=== PATIENT | male | born 1945 | race Caucasian/White ===

== ENCOUNTER 2019-03-07 08:56 | Inpatient (IN) | payer MEDICARE ==
[~2019-03-07] VITALS: Ht 185.4 cm; Wt 109.6 kg
[2019-03-07 10:28] LABS: Source, Urine Clean Catch
[2019-03-07 10:32] LABS: Bilirubin, Urine Neg (Neg); Blood, Urine Neg (Neg); Glucose Qualitative, Urine 4+ (Neg); Ketones, Urine 2+ (Neg); Leukocyte Esterase, Urine Neg (Neg); Nitrite, Urine Neg (Neg); Protein, Urine Neg (Neg); Specific Gravity, Urine 1.025 (1.003-1.022); Urobilinogen, Urine NORM (Normal)
[2019-03-07 10:33] LABS: BASOPHILS ABSOLUTE AUTO 0.01 K/mm3 (0.00-0.23); BASOPHILS PERCENT AUTO 0 % (0-2); EOSINOPHILS ABSOLUTE AUTO 0.02 K/mm3 (0.00-0.68); EOSINOPHILS PERCENT AUTO 0 % (0-6); Hematocrit 19.4 % (37.0-53.0); IMMATURE GRAN ABSOLUTE AUTO 0.04 K/mm3 (0.00-0.10); IMMATURE GRAN PERCENT AUTO 1 % (0-1); LYMPHOCYTES ABSOLUTE AUTO 0.72 K/mm3 (0.84-5.20); LYMPHOCYTES PERCENT AUTO 10 % (21-46); MONOCYTES PERCENT AUTO 7 % (4-13); Mean Corpuscular HGB Conc 29.4 g/dL (31.5-36.5); Mean Corpuscular Volume 89 fL (80-100); NEUTROPHILS ABSOLUTE AUTO 5.69 K/mm3 (1.96-9.15); NEUTROPHILS PERCENT AUTO 82 % (41-73); NRBC ABSOLUTE 0.03 K/mm3 (0.00-0.02); NRBC Auto 0.4 /100 WBC (0.0-0.2); Platelet Count 337 K/mm3 (150-400); RDW Standard Deviation 56.9 fL (35.1-46.3); Red Blood Cell Count 2.19 M/mm3 (4.30-5.90); White Blood Cell Count 6.98 K/mm3 (4.00-11.30)
[2019-03-07 10:37] LABS: Hemoglobin 5.7 g/dL (13.5-17.5)
[2019-03-07 10:43] LABS: Appearance, Urine Clear (Clear); Color, Urine Yellow (P-Yellow)
[2019-03-07] MEDS ORDERED: LOVA40 PO (10:50)
[2019-03-07] MEDS ORDERED: METO25ER PO (10:50)
[2019-03-07] MEDS ORDERED: LOSA25 PO (10:50)
[2019-03-07 10:57] LABS: Alanine Aminotransfer (ALT/SGP 18 U/L (12-78); Albumin, Blood 3.3 g/dL (3.4-5.0); Alk Phos 62 U/L (50-136); Anion Gap 10 mmol/L (6-16); Aspartate Aminotrans (AST/SGOT 10 U/L (12-37); Bilirubin, Total 0.5 mg/dL (0.1-1.0); Blood Urea Nitrogen 34 mg/dL (8-24); Bun/Creatinine Ratio 38.8 (12.0-20.0); CO2, Blood 20 mmol/L (21-32); Calcium, Blood 8.4 mg/dL (8.5-10.1); Chloride, Blood 107 mmol/L (98-108); Creatinine, Blood 0.88 mg/dL (0.60-1.20); Globulin, Blood 3.2 g/dL (2.2-4.0); Glomerular Filtration Rate >60 (60-); Glucose, Blood 230 mg/dL (70-99); Potassium, Blood 3.9 mmol/L (3.5-5.5); Sodium, Blood 137 mmol/L (136-145); Total Protein, Blood 6.5 g/dL (6.4-8.2)
[2019-03-07 11:54] LABS: International Normalized Ratio 1.17; Prothrombin Time Results 12.2 Sec (9.7-11.5)
[2019-03-07] MEDS ORDERED: Co Q-10300 MG PO (13:47)
[2019-03-07] MEDS ORDERED: CHOL10002 PO (13:48)
[2019-03-07] MEDS ORDERED: CENTRUM SILVER1 EAC4 PO (13:49)
[2019-03-07] MEDS ORDERED: OMEG1CAP30 PO (13:49)
[2019-03-07] MEDS ORDERED: Aspirin EC81 MG PO (13:50)
[2019-03-07] MEDS ORDERED: Glucosamine Ch1 EAC3 PO (13:50)
--- NOTE | 2019-03-07 14:45 | NUR ---
ASSUMED CARE PT. ALERT AND ORIENTED. ABLE TO TRANSFER SELF TO ICU BED. PT. HAS FIRST UNIT OF BLOOD INFUSING UPON ARRIVAL. PT. DENIES PAIN, INCLUDING NO PAIN WITH ABD. PALPATION. PT. CURRENTLY ON RA. LS CLEAR T/O. PT. VSS UPON ARRIVAL, HR IN THE LOW 100S, BP STABLE. DR. OWENS PAGED UPON PT. ARRIVAL. PT. HAS PROTONIX GTT INFUSING AT THIS TIME. URINAL PLACED AT BEDSIDE. PT. REPORTS DARK TARRY STOOL YESTERDAY AM BUT REPORTS NO ADDITIONL BMS SINCE. PT DENIES ANY N/V. CALL LIGHT IN REACH, PT. ORIENTED TO ROOM.
--- NOTE | 2019-03-07 16:57 | NUR ---
DR. OWENS IN TO SEE PT. PLANS FOR UPPER ENDOSCOPY TOMORROW AFTERNOON. PER. DR. ROMAN KELLEY FOR PT. TO HAVE CLEAR LIQUID DIET AND NPO AFTER BREAKFAST TOMORROW AM.
--- NOTE | 2019-03-07 18:28 | NUR ---
SHIFT SUMMARY PT. REMAINS ALERT AND ORIENTED. VSS. 2 UNITS OF PRBCS INFUSED. NO BMS NO EMESIS. PT. CONTINUES TO DENY PAIN. PLANS TO SCOPE PT IN THE AFTERNOON TOMORROW. PT TO BE NPO AFTER BREAKFAST WITH CLEAR LIQUID DIET. REPORT TO ONCOMING RN.
[2019-03-07 18:55] LABS: Hematocrit 21.8 % (37.0-53.0); Hemoglobin 6.8 g/dL (13.5-17.5)
--- NOTE | 2019-03-07 23:25 | NUR ---
ASSUMING CARE RECEIVED PT REPORT FROM AMANDEEP GONG. PT IS ALERT AND ORIENTED AT THE TIME CARE ASSUMED. PT IS ADMITTED DUE TO ANEMIA AND GIB. PT IS ON ROOM AIR WITH SPO2 IN THE HIGH 90'S TO 100 RANGE. PT LUNG SOUNDS ARE CLEAR. PT HR IS IN THE 80-100 RANGE. PT HR APPEARS TO BE IN A-FIB AT TIMES. PT BP IS STABLE AT THIS TIME. PER REPORT PT HAS RECEIVED 2 UNITS OF BLOOD. AT THE TIME CARE ASSUMED PT HGB WAS 6.8. MARIA LUISA LATHAM CALLED AND INFORMED OF PTS HGB AFTER 2 UNITS PRBC'S. ORDER RECEIVED PT TRANSFUSE 1 UNIT PRBC AND REDRAW H/H AFTER INFUSION COMPLETE. ORDER ENTERED RECEIVED. 1 UNIT PRBC TRANSFUSED. PT IS ABLE TO VOID USING URINAL WITHOUT DIFFICULTY. PT IS RECEIVING NS AT 100ML/HR AND PROTONIX AT 10ML/HR. NS PLACED ON HOLD THROUGH BLOOD TRANSFUSION. ASSUMED CARE OF PT AT THE TIME OF SHIFT REPORT. WILL CONTINUE TO MONITOR PT.
[2019-03-07 23:52] LABS: Hematocrit 23.6 % (37.0-53.0); Hemoglobin 7.5 g/dL (13.5-17.5)
--- NOTE | 2019-03-08 02:27 | NUR ---
REASSESSMENT PT VITALS REMAIN STABLE AT THIS ITME. PT HAS NOT HAD A BM OF YET THROUGH THE NIGHT. PT CONTINUES TO RECEIVE NS AT 100ML/HR AND PROTONIX AT 10ML/HR. WILL CONTINUE TO MONITOR PT.
[2019-03-08 03:00] LABS: BASOPHILS ABSOLUTE AUTO 0.02 K/mm3 (0.00-0.23); BASOPHILS PERCENT AUTO 0 % (0-2); EOSINOPHILS ABSOLUTE AUTO 0.15 K/mm3 (0.00-0.68); EOSINOPHILS PERCENT AUTO 2 % (0-6); Hematocrit 23.4 % (37.0-53.0); Hemoglobin 7.3 g/dL (13.5-17.5); IMMATURE GRAN ABSOLUTE AUTO 0.02 K/mm3 (0.00-0.10); IMMATURE GRAN PERCENT AUTO 0 % (0-1); LYMPHOCYTES ABSOLUTE AUTO 1.14 K/mm3 (0.84-5.20); LYMPHOCYTES PERCENT AUTO 17 % (21-46); MONOCYTES ABSOLUTE AUTO 0.73 K/mm3 (0.16-1.47); MONOCYTES PERCENT AUTO 11 % (4-13); Mean Corpuscular HGB 27.2 pg (26.0-34.0); Mean Corpuscular HGB Conc 31.2 g/dL (31.5-36.5); Mean Corpuscular Volume 87 fL (80-100); Mean Platelet Volume 9.6 fL (9.1-12.4); NEUTROPHILS ABSOLUTE AUTO 4.83 K/mm3 (1.96-9.15); NEUTROPHILS PERCENT AUTO 70 % (41-73); Platelet Count 235 K/mm3 (150-400); RDW Coefficient Variation 17.5 % (11.7-14.2); RDW Standard Deviation 55.3 fL (35.1-46.3); Red Blood Cell Count 2.68 M/mm3 (4.30-5.90); White Blood Cell Count 6.89 K/mm3 (4.00-11.30)
[2019-03-08 03:19] LABS: Anion Gap 7 mmol/L (6-16); Blood Urea Nitrogen 24 mg/dL (8-24); Bun/Creatinine Ratio 26.6 (12.0-20.0); CO2, Blood 22 mmol/L (21-32); Calcium, Blood 7.8 mg/dL (8.5-10.1); Chloride, Blood 113 mmol/L (98-108); Glomerular Filtration Rate >60 (60-); Glucose, Blood 101 mg/dL (70-99); Potassium, Blood 4.1 mmol/L (3.5-5.5); Sodium, Blood 142 mmol/L (136-145)
--- NOTE | 2019-03-08 05:56 | NUR ---
SHIFT SUMMARY NOTE PT HAS REMAINED ALERT AND ORIENTED WHILE AWAKE. PT HAS SLEPT OFF AND ON THROUGHOUT THE NIGHT. PT HAS REMAINED ON ROOM AIR THROUGHOUT THE NIGHT WITHOUT ANY NOTED DESATURATIONS. PT VITALS HAVE REMAINED STABLE THROUGH THE NIGHT. PT CONTINUES TO RECEIVE NS AT 100ML/HR AND PROTONIX AT 10ML/HR. PT HAS BEEN ABLE TO USE URINAL THROUGHOUT THE NIGHT BY STANDING NEXT TO THE BED A STANDBY ASSIST WITHOUT DIFFICULTY. PT HAS NOT HAD A BM THROUGHOUT THE NIGHT. NO OBVIOUS SIGNS OF BLEEDING HAVE BEEN NOTED THROUGH THE NIGHT. WILL REPORT OFF TO ONCOMING DAY SHIFT NURSE.
--- NOTE | 2019-03-08 07:41 | NUR ---
ASSUMED CARE: REPORT RECEIVED FROM KARLA Bynum RN. ASSUMED CARE OF THIS PT AT APPROX 0700. ON ASSESSMENT, THE PT IS SITTING UP IN BED. HE DENIES NEEDS OR PAIN AT THIS TIME & IS TOLERATING PO INTAKE OF CLEAR LIQUIDS WELL. PT TO BE NPO AFTER BREAKFAST FOR POSSIBLE UPPER ENDO THIS AFTERNOON. WILL CONTINUE TO MONITOR & UPDATE NEEDED.
--- NOTE | 2019-03-08 10:00 | NUR ---
DR. GUZMAN: PROVIDER AT BEDSIDE TO SEE PT. NO NEW ORDERS AT THIS TIME. WILL RESULTS OF UPPER ENDO THIS AFTERNOON. WILL CONTINUE TO MONITOR & UPDATE NEEDED.
--- NOTE | 2019-03-08 13:02 | NUR ---
UPPER ENDOSCOPY: DR. OWENS & DAY SURGERY RNs IN ROOM TO PERFORM UPPER ENDO. PT VERBALIZES UNDERSTANDING OF THIS PROCEDURE. HE HAS BEEN NPO SINCE BREAKFAST. WILL CONTINUE TO MONITOR & UPDATE NEEDED.
--- NOTE | 2019-03-08 13:19 | NUR ---
03/08/19 1319 Renetta Diggs History, Chart, Medications and Allergies reviewed before start of procedure.Patient confirms NPO status and agrees with scheduled surgery.MONITOR INTACT WITH CONTINUOUS PULSE OXIMETRY AND INTERMITTENT BP.3-LEAD EKG REVIEWED WITH PHYSICIAN PRIOR TO START OF PROCEDURE. PATIENT DETERMINED TO BE ASA APPROPRIATE FOR PROPOFOL SEDATION PRIOR TO START OF PROCEDURE BY DR. FRANCIS O2 VIA N/C INTACT THROUGHOUT SEDATION/PROCEDURE.
--- NOTE | 2019-03-08 14:30 | NUR ---
DR. OWENS: UPPER ENDOSCOPY HAS BEEN COMPLETED, PROVIDER IS AT BEDSIDE DISCUSSING RESULTS W/ PT. THE PT IS TO REMAIN ON CLEAR LIQUIDS ONLY, NO REDS. DR. PAULINO HAS BEEN CONSULTED BY DR. OWENS & WILL BE ABLE TO SEE THE PT ON THURSDAY (03/10/19). ORDERS PLACED FOR CTA OF CHEST & ABD. SHANK PIECE TACKER WILL CALL THIS RN WHEN THE PT IS OKAY TO BE BROUGHT DOWN FOR IMAGING STUDY. DR. OWENS STS THAT THE BLEEDING HAS BEEN BEEN STOPPED AT THIS TIME BUT IS LIKELY TO REOCCUR. WILL CONTINUE TO MONITOR & UPDATE NEEDED.
--- NOTE | 2019-03-08 16:39 | NUR ---
Initial Spiritual Care visit: Amilcar was welcoming and talkative. We met late this AM, before his proceedure. He was not particularly worried at that time. He told me about his life, his careers, and his devotion to volunteering at a [email or web address]. He is a fascinating man. His is currently out of town, but will arrive tomorrow. He appears to have a strong marriage. He has christopher in God, and responded well to prayer and theraputic listening. We had an easy rapport. I will continue to see Amilcar as schedule permits.
--- NOTE | 2019-03-08 18:42 | NUR ---
SHIFT SUMMARY: NO ACUTE CHANGES THIS SHIFT. PT REMAINS A&O, PLEASANT & COOPERATIVE W/ CARE. PT STS EXPERIENCING MILD DIZZINESS W/ TRIP TO IMAGING & FREQUENT TXs FROM BED TO WC. THIS IS RESOLVED WHEN BACK TO BED & RESTING. LS REMAIN CLEAR T/O, PT ON RA W/ O2 SATS > 92%. AFIB ON MONITOR, HR 80-100s. BP INCREASED THIS AFTERNOON SINCE UPPER ENDO PERFORMED & PT INFORMED OF PROCEDURE FINDINGS. BT HYPERACTIVE x4, PT HAS HAD NO BM THIS SHIFT. PT TOLERATING PO INTAKE OF CLEAR LIQUIDS WELL, HE IS TO BE NPO AFTER [place] PRIOR TO DR. PAULINO CONSULT ON THURSDAY. VOIDS YELLOW URINE USING URINAL AT BEDSIDE W/O DIFFICULTY, PAD IN UNDERWEAR FOR OCCASIONAL DRIBBLING INCONTINENCE. PALLIATIVE CARE & SUPPORT HAVE BEEN OFFERED SINCE PROCEDURE FINDINGS TODAY. PT's WILL BE BACK IN TOWN TOMORROW & THE PT HAS BEEN IN COMMUNICATION W/ HER. WILL CONTINUE TO MONITOR & REPORT OFF TO ONCOMING RN.
--- NOTE | 2019-03-08 19:30 | NUR ---
ASSUMED CARE PT A&O X 4, SITTING UP IN BED, CURRENTLY DENIES COMPLAINTS. PER REPORT, SCOPE COMPLETED TODAY, PT HAS SOME QUESTIONS REGARDING PLANS FOR OVERNIGHT INCLUDING RECHECKING H&H IN AM AND MONITORING FOR BLEEDING. PT SOMEWHAT ANXIOUS AND REPORTS HE LIKES TO TALK ABOUT HIS LIFE AND VOLUNTEER ACTIVITIES A WAY OF DISTRACTING HIMSELF. PROTONIX AT 10ML/HR, NS 100ML/HR. PLAN TO ENCOURAGE CLEAR LIQUID PO INTAKE, PT HAS CONCERNS THAT "WHATEVER WAS PLACED INTO BLEEDING MASS WILL WEAR OFF." REASSURED THAT SMALL SIPS OF WATER OR APPLE JUICE SHOULD NOT CAUSE A PROBLEM BUT PT REMAINS SCEPTICAL. VSS, ECG SHOWS AFIB IN THE 70-90'S AND O2 SATS ON RA >95%.
[2019-03-09 03:35] LABS: BASOPHILS ABSOLUTE AUTO 0.02 K/mm3 (0.00-0.23); BASOPHILS PERCENT AUTO 0 % (0-2); EOSINOPHILS ABSOLUTE AUTO 0.24 K/mm3 (0.00-0.68); EOSINOPHILS PERCENT AUTO 3 % (0-6); Hematocrit 22.2 % (37.0-53.0); Hemoglobin 6.8 g/dL (13.5-17.5); IMMATURE GRAN ABSOLUTE AUTO 0.03 K/mm3 (0.00-0.10); IMMATURE GRAN PERCENT AUTO 0 % (0-1); LYMPHOCYTES ABSOLUTE AUTO 0.84 K/mm3 (0.84-5.20); LYMPHOCYTES PERCENT AUTO 11 % (21-46); MONOCYTES ABSOLUTE AUTO 0.96 K/mm3 (0.16-1.47); MONOCYTES PERCENT AUTO 13 % (4-13); Mean Corpuscular HGB 27.3 pg (26.0-34.0); Mean Corpuscular HGB Conc 30.6 g/dL (31.5-36.5); Mean Corpuscular Volume 89 fL (80-100); Mean Platelet Volume 9.2 fL (9.1-12.4); NEUTROPHILS ABSOLUTE AUTO 5.49 K/mm3 (1.96-9.15); NEUTROPHILS PERCENT AUTO 72 % (41-73); Platelet Count 197 K/mm3 (150-400); RDW Standard Deviation 57.1 fL (35.1-46.3); Red Blood Cell Count 2.49 M/mm3 (4.30-5.90); White Blood Cell Count 7.58 K/mm3 (4.00-11.30)
--- NOTE | 2019-03-09 06:13 | NUR ---
SHFIT SUMMARY PT REMAINS A&O, CONTINUES TO DENY COMPLAINTS OF PAIN OR NAUSEA. NO BM'S FOR SHIFT DESPITE ONE ATTEMPT AND HAS HAD NO OBVIOUS SIGNS OF BLEEDING FOR SHIFT. HGB DROPPED TO 6.8 THIS AM AND 1 UNIT PRBC'S INFUSING AND PROTONIX AT 10ML/HR. NS AT 100ML/HR ON STANDBY WHILE BLOOD INFUSING. VSS, BP DROPS WITH SLEEP BUT HAS ADEQUATE MAP. PT TOLERATING CLEAR LIQUIDS THIS SHIFT. PLAN FOR NPO AT MIDNIGHT TONIGHT FOR [facility] CONSULT ON THURSDAY.
--- NOTE | 2019-03-09 07:15 | NUR ---
START OF SHIFT NOTE: RECEIVED REPORT FROM ZAK GUERRA, RN, ASSUMED CARE, PATIENT IS AWAKE AND ALERT AND ORIENTED, HAS ONE UNIT OF PRBC'S INFUSING AT THIS TIME, LUNG SOUNDS CLEAR, PATIENT HAS CHRONIC A-FIB, RATE CONTROLLED BETWEEN 60'S AND 80'S, BT'S PRESENT IN ALL FOUR QUADRANTS, PATIENT VOIDS WITHOUT PROBLEM BUT NEEDS TO STAND AT SIDE OF BED, USES URINAL, CALLS FOR ASSISTANCE APPROPRIATELY, PEDAL PULSES PRESENT, PALPABLE, AND STRONG, SCD'S ORDERED AND WILL BE PLACED, CALL LIGHT IN REACH, WILL CONTINUE TO MONITOR.
[2019-03-09 12:26] LABS: BASOPHILS ABSOLUTE AUTO 0.02 K/mm3 (0.00-0.23); BASOPHILS PERCENT AUTO 0 % (0-2); EOSINOPHILS ABSOLUTE AUTO 0.08 K/mm3 (0.00-0.68); EOSINOPHILS PERCENT AUTO 1 % (0-6); Hematocrit 25.8 % (37.0-53.0); Hemoglobin 7.9 g/dL (13.5-17.5); IMMATURE GRAN ABSOLUTE AUTO 0.04 K/mm3 (0.00-0.10); IMMATURE GRAN PERCENT AUTO 1 % (0-1); LYMPHOCYTES ABSOLUTE AUTO 0.66 K/mm3 (0.84-5.20); LYMPHOCYTES PERCENT AUTO 9 % (21-46); MONOCYTES ABSOLUTE AUTO 0.95 K/mm3 (0.16-1.47); MONOCYTES PERCENT AUTO 13 % (4-13); Mean Corpuscular HGB 27.4 pg (26.0-34.0); Mean Corpuscular HGB Conc 30.6 g/dL (31.5-36.5); Mean Corpuscular Volume 90 fL (80-100); Mean Platelet Volume 9.2 fL (9.1-12.4); NEUTROPHILS ABSOLUTE AUTO 5.79 K/mm3 (1.96-9.15); NEUTROPHILS PERCENT AUTO 77 % (41-73); Platelet Count 209 K/mm3 (150-400); RDW Coefficient Variation 17.3 % (11.7-14.2); RDW Standard Deviation 55.4 fL (35.1-46.3); Red Blood Cell Count 2.88 M/mm3 (4.30-5.90); White Blood Cell Count 7.54 K/mm3 (4.00-11.30)
--- NOTE | 2019-03-09 17:38 | NUR ---
SHIFT SUMMARY NOTE: PATIENT CONTINUES TO BE AWAKE AND ALERT AND ORIENTED, DR. OWENS AT BEDSIDE AT THIS TIME, AND PATIENT IS TELLING STORIES, PATIENT CONTINUES TO BE ON PROTONIX DRIP, ON CLEAR LIQUID DIET, PATIENT URINATES WELL, STANDING AT SIDE OF BED WITH SBA, SCD'S IN PLACE, NPO AFTER MIDNIGHT FOR PENDING PROCEDURE BY DR. PAULINO IN AM, CALL LIGHT IN REACH, WILL CONTINUE TO MONITOR, FOR DETAILS SEE SHIFT ASSESSMENT DOCUMENTATION AND NURSES NOTES, WILL GIVE REPORT TO ONCOMING LAUNCH ENGINEER.
--- NOTE | 2019-03-09 19:30 | NUR ---
ASSUMED CARE PT REMAINS A&O, DENIES COMPLAINTS AND HAS QUESTIONS ABOUT PROCEDURE WITH DR PAULINO PLANNED FOR TOMORROW. PT EXPRESSES CONCERNS ABOUT NEEDING TO HAVE WORKMAN CATH PLACED D/T SUPINE POSITIONING. DISCUSSED CONDOM CATHETER OPTION, ADVISED PT WILL NOT BE ABLE TO COMPLETELY EMPTY BLADDER BECAUSE HE WILL NOT BE ABLE TO STAND, BUT PT IS CALMED THAT THERE IS ANOTHER OPTION. WILL PASS ON TO AM RN. PT AWARE OF NPO STATUS AFTER MIDNIGHT. PROTONIX AT 10ML/HR AND NS AT 100ML/HR. NO BM TODAY AND REPEAT H&H PLANNED FOR 1999.
[2019-03-09 20:15] LABS: BASOPHILS ABSOLUTE AUTO 0.04 K/mm3 (0.00-0.23); BASOPHILS PERCENT AUTO 1 % (0-2); EOSINOPHILS ABSOLUTE AUTO 0.13 K/mm3 (0.00-0.68); EOSINOPHILS PERCENT AUTO 2 % (0-6); Hematocrit 25.6 % (37.0-53.0); Hemoglobin 8.1 g/dL (13.5-17.5); IMMATURE GRAN ABSOLUTE AUTO 0.04 K/mm3 (0.00-0.10); IMMATURE GRAN PERCENT AUTO 1 % (0-1); LYMPHOCYTES ABSOLUTE AUTO 0.85 K/mm3 (0.84-5.20); LYMPHOCYTES PERCENT AUTO 10 % (21-46); MONOCYTES ABSOLUTE AUTO 1.27 K/mm3 (0.16-1.47); MONOCYTES PERCENT AUTO 15 % (4-13); Mean Corpuscular HGB 28.5 pg (26.0-34.0); Mean Corpuscular HGB Conc 31.6 g/dL (31.5-36.5); Mean Corpuscular Volume 90 fL (80-100); Mean Platelet Volume 9.8 fL (9.1-12.4); NEUTROPHILS ABSOLUTE AUTO 6.28 K/mm3 (1.96-9.15); NEUTROPHILS PERCENT AUTO 73 % (41-73); Platelet Count 220 K/mm3 (150-400); RDW Coefficient Variation 17.6 % (11.7-14.2); RDW Standard Deviation 55.2 fL (35.1-46.3); Red Blood Cell Count 2.84 M/mm3 (4.30-5.90); White Blood Cell Count 8.61 K/mm3 (4.00-11.30)
[2019-03-10 03:47] LABS: BASOPHILS ABSOLUTE AUTO 0.03 K/mm3 (0.00-0.23); BASOPHILS PERCENT AUTO 0 % (0-2); EOSINOPHILS ABSOLUTE AUTO 0.15 K/mm3 (0.00-0.68); EOSINOPHILS PERCENT AUTO 2 % (0-6); Hematocrit 25.3 % (37.0-53.0); IMMATURE GRAN ABSOLUTE AUTO 0.03 K/mm3 (0.00-0.10); IMMATURE GRAN PERCENT AUTO 0 % (0-1); LYMPHOCYTES ABSOLUTE AUTO 0.73 K/mm3 (0.84-5.20); LYMPHOCYTES PERCENT AUTO 10 % (21-46); MONOCYTES ABSOLUTE AUTO 1.11 K/mm3 (0.16-1.47); MONOCYTES PERCENT AUTO 15 % (4-13); Mean Corpuscular HGB 28.1 pg (26.0-34.0); Mean Corpuscular HGB Conc 31.6 g/dL (31.5-36.5); Mean Corpuscular Volume 89 fL (80-100); Mean Platelet Volume 9.8 fL (9.1-12.4); NEUTROPHILS PERCENT AUTO 72 % (41-73); Platelet Count 216 K/mm3 (150-400); RDW Coefficient Variation 17.7 % (11.7-14.2); RDW Standard Deviation 55.8 fL (35.1-46.3); Red Blood Cell Count 2.85 M/mm3 (4.30-5.90); White Blood Cell Count 7.35 K/mm3 (4.00-11.30)
[2019-03-10 04:05] LABS: Alanine Aminotransfer (ALT/SGP 19 U/L (12-78); Albumin, Blood 2.7 g/dL (3.4-5.0); Alk Phos 55 U/L (50-136); Anion Gap 6 mmol/L (6-16); Aspartate Aminotrans (AST/SGOT 15 U/L (12-37); Bilirubin, Total 0.8 mg/dL (0.1-1.0); Blood Urea Nitrogen 11 mg/dL (8-24); Bun/Creatinine Ratio 11.2 (12.0-20.0); CO2, Blood 23 mmol/L (21-32); Calcium, Blood 7.7 mg/dL (8.5-10.1); Chloride, Blood 113 mmol/L (98-108); Creatinine, Blood 0.98 mg/dL (0.60-1.20); Globulin, Blood 2.8 g/dL (2.2-4.0); Glomerular Filtration Rate >60 (60-); Glucose, Blood 94 mg/dL (70-99); Potassium, Blood 3.6 mmol/L (3.5-5.5); Sodium, Blood 142 mmol/L (136-145); Total Protein, Blood 5.5 g/dL (6.4-8.2)
--- NOTE | 2019-03-10 06:18 | NUR ---
SHIFT SUMMARY PT N[place] AFTER [place] [facility] [place] NO BM'S OVERNIGHT AND PT HAS DENIED NEED BUT DOES REPORT PASSING FLATUS. PT HAVING INCREASED COUGHING EPISODES FOR SHIFT, DENIES SOB BUT BILAT HANDS NOW SWOLLEN. PROTONIX GTT CONTINUES, IV FLUID TKO FOR NOW UNTIL AM CAN FOLLOW UP WITH AM HOSPITALIST D/T INCREASED COUGH AND SWEELING. RT FA 20GA INFILTRATED THIS AM, IV REMOVED, ARM ELEVATED AND WARM BLANKET TO ARM X 30 MINUTES. H&H STABLE, BP STABLE, ECG REMAINS AFIB, O2 SATS MID 90'S.
--- NOTE | 2019-03-10 07:20 | NUR ---
START OF SHIFT NOTE: PATIENT IS AWAKE, ALERT AND ORIENTED, DENIES PAIN, AFEBRILE, NSR, LUNG SOUNDS DIMINISHED BUT CLEAR, BT'S HYPOACTIVE, USES URINAL, STANDING AT BEDSIDE, SCD'S IN PLACE, PATIENT ALSO WEARS OWN COMPRESSION STOCKINGS, NPO THIS AM FOR PENDING PROCEDURE BY DR. PAULINO, IVF INFUSING AND PROTONIX DRIP INFUSING WELL, CALL LIGHT IN REACH, WILL CONTINUE TO MONITOR.
--- NOTE | 2019-03-10 11:29 | NUR ---
PATIENT RADIATOR TESTER LIGHT, ASKED QUESTIONS ABOUT PENDING PROCEDURE BY DR. PAULINO, UPDATE PROVIDED, NO SCHEDULED TIME YET FOR PROCEDURE, CALL LIGHT IN REACH, WILL CONTINUE TO MONITOR.
--- NOTE | 2019-03-10 12:25 | NUR ---
DR. WILDERTRATE IN TO SEE PATIENT, NO NEW ORDERS RECEIVED.
--- NOTE | 2019-03-10 15:38 | NUR ---
DR. PAULINO IN TO SEE PATIENT, WILL HAVE PROCEDURE DONE IN AM ON 03-11-19, PATIENT TO BE NPO UNTIL THEN, CONSENT SIGNED.
--- NOTE | 2019-03-10 17:52 | NUR ---
SHIFT SUMMARY NOTE: PATIENT CONTINUES TO BE ALERT AND ORIENTED, PRECEDURE WAS NOT DONE TODAY, DR. PAULINO IN TO SEE PATIENT AND OBTAINED CONSENT, PROCEDURE SCHEDULED FOR 10-11:30 TOMORROW, PATIENT RECEIVED DINNER TRAY WITH CLEAR LIQUID DIET, WILL BE NPO AFTER MIDNIGHT, VSS, PATIENT ABLE TO STAND AND URINATE USING URINAL APPROPRIATELY, AFEBRILE, DENIES PAIN, EDEMA ON RIGHT UPPER ARM DECREASED, CONTINUES TO BE ON PROTONIX DRIP, AND IVF AT KVO, FOR DETAILS SEE SHIFT ASSESSMENT DOCUMENTATION AND NURSES NOTES, CALL LIGHT IN REACH, WILL CONTINUE TO MONITOR.
--- NOTE | 2019-03-10 20:00 | NUR ---
CARE ASSUMED REPORT RECEIVED, CARE ASSUMED. PT SITTING UP IN BED WATCHING TELEVISION, DENIES NEEDS AT THIS TIME. SEE SHIFT ASSESSMENT. SEE VITALS FLOWSHEET. AGREES TO CALL FOR NEEDS.
--- NOTE | 2019-03-10 22:06 | NUR ---
CODE STATUS DURING ASSESSMENT CONFIRMED LIMITED CODE STATUS WITH PATIENT AND HE STATES, "NO, I WANT CPR. I JUST DON'T WANT TO BE HOOKED UP TO MACHINES FOR A LONG PERIOD OF TIME." CONFIRMED WITH PT THAT HE WOULD INITIALLY WANT CPR, MEDS AND INTUBATION AND PT STATES "YES." SPOKE WITH MARIA LUISA LATHAM. NEW ORDER RECEIVED, CODE STATUS UPDATED.
[2019-03-11 03:36] LABS: BASOPHILS ABSOLUTE AUTO 0.03 K/mm3 (0.00-0.23); BASOPHILS PERCENT AUTO 0 % (0-2); EOSINOPHILS PERCENT AUTO 3 % (0-6); Hematocrit 27.3 % (37.0-53.0); Hemoglobin 8.3 g/dL (13.5-17.5); IMMATURE GRAN ABSOLUTE AUTO 0.02 K/mm3 (0.00-0.10); IMMATURE GRAN PERCENT AUTO 0 % (0-1); LYMPHOCYTES ABSOLUTE AUTO 0.83 K/mm3 (0.84-5.20); LYMPHOCYTES PERCENT AUTO 11 % (21-46); MONOCYTES ABSOLUTE AUTO 0.97 K/mm3 (0.16-1.47); MONOCYTES PERCENT AUTO 13 % (4-13); Mean Corpuscular HGB 27.4 pg (26.0-34.0); Mean Corpuscular HGB Conc 30.4 g/dL (31.5-36.5); Mean Corpuscular Volume 90 fL (80-100); Mean Platelet Volume 9.8 fL (9.1-12.4); NEUTROPHILS ABSOLUTE AUTO 5.28 K/mm3 (1.96-9.15); NEUTROPHILS PERCENT AUTO 72 % (41-73); Platelet Count 228 K/mm3 (150-400); RDW Coefficient Variation 18.1 % (11.7-14.2); RDW Standard Deviation 56.9 fL (35.1-46.3); Red Blood Cell Count 3.03 M/mm3 (4.30-5.90); White Blood Cell Count 7.33 K/mm3 (4.00-11.30)
[2019-03-11 03:59] LABS: Anion Gap 9 mmol/L (6-16); Blood Urea Nitrogen 11 mg/dL (8-24); Bun/Creatinine Ratio 11.4 (12.0-20.0); CO2, Blood 21 mmol/L (21-32); Calcium, Blood 7.8 mg/dL (8.5-10.1); Chloride, Blood 109 mmol/L (98-108); Creatinine, Blood 0.96 mg/dL (0.60-1.20); Glomerular Filtration Rate >60 (60-); Glucose, Blood 104 mg/dL (70-99); Potassium, Blood 3.6 mmol/L (3.5-5.5); Sodium, Blood 139 mmol/L (136-145)
--- NOTE | 2019-03-11 06:32 | NUR ---
SUMMARY NO ACUTE CHANGES THROUGHOUT SHIFT. VITALS STABLE. PROTONIX GTT, NS @ 100 ML/HR INFUSING PER ORDERS THROUGHOUT SHIFT. ASSESSMENTS UNCHANGED. PT NPO SINCE MIDNIGHT FOR PROCEDURE THIS MORNING. PT HAS CALLED APPROPRIATELY FOR NEEDS, STAND BY ASSIST TO USE URINAL.
--- NOTE | 2019-03-11 07:13 | NUR ---
REPORT TO AMANDEEP LAI TO ASSUME CARE
--- NOTE | 2019-03-11 11:06 | NUR ---
0730: CARE ASSUMED, ASSESSMENT COMPLETED. PT ALERT, ORIENTED X4, APPROPRIATE AND COOPERATIVE WITH CARE. PT DENIES PAIN OR NAUSEA AT THIS TIME, DENIES HAVING BLOODY/BLACK STOOLS OR EMESIS. BT HYPOACTIVE, ABDOMEN SOFT, MILDLY DISTENDED. VSS, HR 90'S - 110'S AFIB, PT DENIES CHEST PAIN/PRESSURE OR SOB. PROTONIX INFUSING PER ORDERS. 0830: PT HAD A SHOWER WITH INTERNATIONAL TRADE TEACHER ASSISTANCE, IS BACK TO BED NOW WITH SCD'S ON BLE'S AND PROTONIX INFUSION RESUMED. VSS, PT DENIES PAIN OR C/O AT THIS TIME, IS TALKING ON PHONE WITH . 1020: PT TO INSPECTOR FINAL ASSEMBLY ELECTRICAL WITH STAFF FOR PROCEDURE.
--- NOTE | 2019-03-11 12:26 | NUR ---
1210: PT RETURNED FROM PROCEDURE, AWAKE, ALERT AND ORIENTED X4, VSS, PT DENIES PAIN OR NAUSEA. DRESSING TO RIGHT FEMORAL ACCESS POINT CDI, NO OOZING OF BLOOD NOTED, WILL CONTINUE TO MONITOR. PT LYING FLAT IN SUPINE POSITION, KNOWS NOT TO LIFT HEAD OR BEND LEG. 1230: DR. BETHEA AT BEDSIDE.
--- NOTE | 2019-03-11 13:31 | NUR ---
1330: PT RESTING IN BED, REMAINS IN SUPINE POSITION, NO BLEEDING OR OOZING NOTED TO RIGHT GROIN, PT DENIES PAIN/SOB/NAUSEA, REMAINS ALERT AND ORIENTED. AT BEDSIDE ASSISTING PT WITH PO FLUIDS. VSS.
--- NOTE | 2019-03-11 16:00 | NUR ---
Initial palliative care consult: Amilcar is a 73 year old gentleman who was admitted on 03/07/19 with weakness, fatigue, SOB and anemia. He has a history of HTN, hyperlipidemia, a-fib, reflux, prostate cancer s/p a prostatectomy and radiation treatment. He was found to have a bleeding "growth" as he calls it in his stomach. He just recently underwent a procedure with Dr. Bowser, IR, to stop the bleeding which was successful. Amilcar said that the doctor took some biopsies and think that it's "cancer" but he prefers to call it a growth. Amilcar did say that the doctor did not think this growth is related to his prostate cancer in the past. Amilcar is normally active and independent. He recently was traveling on a cruise. Reviewed chart and pt is currently a full code. He reports that he feels tired and he is hoping to go home tomorrow. He stated that he will need to follow up with GI at [facility] once he is discharged from [facility] to come up with treatment options. Amilcar did say his only source of discomfort at the time of this visit was his RUE. His right forearm is red and has 2+ edema. He reports pain from forearm to elbow on that side. He stated that he had an IV in that area that was taken out yesterday. He does appear to have a phlebitis to that area. Will notify his bedside nurse for treatment with heat and elevation to help with the swelling and discomfort. BP cuff moved to his LUE per his request as the BP cuff was increasing his discomfort in that right arm. Visit kept brief today as Amilcar stated he was very tired. He is hopeful to go home tomorrow. He plans to follow up with GI at [facility] after discharge for a definitive diagnosis and treatment options.
--- NOTE | 2019-03-11 16:19 | NUR ---
1600: REASSESSMENT COMPLETED, SWELLING TO RIGHT ARM APPEARS TO BE INCREASING WHERE IV HAD BEEN PREVIOUSLY THIS STAY, AREA IS RED AND WARM TO TOUCH, PT REPORTS SOME SORENESS. WARM COMPRESS TO RIGHT FA AT THIS TIME. DRESSING TO RIGHT GROIN CDI, NO BLEEDING OR HEMATOMA NOTED AT SITE, PT DENIES PAIN. VSS, PT DENIES NAUSEA.
--- NOTE | 2019-03-11 17:02 | NUR ---
1700: PT HAS ORDERS FOR DISCHARGE, STATES HIS CANNOT RETURN TO GET HIM TONIGHT AND THAT HE WOULD RATHER STAY UNTIL TOMORROW MORNING. ISTRATE AWARE, STATES THIS IS ACCEPTABLE AND THAT PT CAN BE TRANSFERRED TO MEDICAL FLOOR FOR THE NIGHT. AFTER SCHOOL DRIVER NOTIFIED.
--- NOTE | 2019-03-11 18:18 | NUR ---
1800: PT FINISHED DINNER WITHOUT N/V OR ABDOMINAL PAIN, APPETITE IS GOOD. PT SITTING UP IN BED, DENIES C/O AT THIS TIME. RIGHT FA REDNESS/SWELLING DECREASING WITH HEAT, KPAD APPLIED AT THIS TIME. PT DENIES OTHER NEEDS. PT DENIED PAIN, DIZZINESS, AND N/V T/O SHIFT, NO EMESIS OR STOOLS. VSS, NO BLEEDING TO RIGHT GROIN, DRESSING CDI. PT PLEASANT AND COOPERATIVE T/O DAY, STILL WAITING ON A ROOM ASSIGNMENT FOR IN HOUSE TRANSFER.
--- NOTE | 2019-03-11 20:38 | NUR ---
ASSUMING CARE AND PT TRANSFER. RECEIVED PT REPROT FROM JOELLE BERNSTEIN, PT IS ALERT AND ORIETNED AT THE TIME OF SHIFT REPORT. PT IS RECEIVEING NS AT 100ML/HR. PT VITAL SIGNS ARE STABLE AT THIS TIME. PT IS ON ROOM AIR WITH SPO2 IN THE HIGH 90'S. PT HAS NO COMPLAINTS OF PAIN AT THIS TIME. PT HAS DISCHARGE ORDERS IN PLACE AND IS TO BE DISCHARGED IN THE AM. REPORT CALLED TO AMANDEEP PAYTON ON SURGICAL FLOOR. PT TO BE TRANSFERED TO ROOM 218. REPORT GIVEN, ALL QUESTIONS ANSWERED AT THE TIME OF REPORT. PT TRANSFERED TO ROOM 218 VIA W/C WITH ALL BELONGINGS. RN IN ROOM TO RECEIVE PT.
--- NOTE | 2019-03-11 21:00 | NUR ---
RECEIVED HAND OFF FROM ICU NURSE USING SBAR. TRANSPORTED TO ROOM 218 VIA WHEELCHAIR. TRANSFERED SELF TO BED WITH STANDBY ASSIST, TOLERATED WELL. AAO X3, HERNDON, FOLLOWS ALL COMMANDS. ORIENTED TO ROOM, CALL SYSTEM, AND POC, VOICES UNDERSTANDING. SHIFT ASSESSMENT IN PROGRESS. SAFETY MEASURES IN PLACE. WILL CONTINUE TO MONITOR.
--- NOTE | 2019-03-12 02:30 | NUR ---
0230: ASSUMED CARE OF PT WHO IS RESTING QUIETLY IN BED WITH CALL LIGHT IN REACH.
[2019-03-12 04:08] LABS: BASOPHILS ABSOLUTE AUTO 0.03 K/mm3 (0.00-0.23); BASOPHILS PERCENT AUTO 0 % (0-2); EOSINOPHILS PERCENT AUTO 3 % (0-6); Hemoglobin 8.2 g/dL (13.5-17.5); IMMATURE GRAN ABSOLUTE AUTO 0.04 K/mm3 (0.00-0.10); IMMATURE GRAN PERCENT AUTO 1 % (0-1); LYMPHOCYTES ABSOLUTE AUTO 0.78 K/mm3 (0.84-5.20); LYMPHOCYTES PERCENT AUTO 11 % (21-46); MONOCYTES ABSOLUTE AUTO 1.09 K/mm3 (0.16-1.47); MONOCYTES PERCENT AUTO 15 % (4-13); Mean Corpuscular HGB 27.5 pg (26.0-34.0); Mean Corpuscular HGB Conc 30.4 g/dL (31.5-36.5); Mean Corpuscular Volume 91 fL (80-100); Mean Platelet Volume 10.1 fL (9.1-12.4); NEUTROPHILS ABSOLUTE AUTO 5.22 K/mm3 (1.96-9.15); NEUTROPHILS PERCENT AUTO 71 % (41-73); Platelet Count 221 K/mm3 (150-400); RDW Coefficient Variation 17.8 % (11.7-14.2); RDW Standard Deviation 58.6 fL (35.1-46.3); Red Blood Cell Count 2.98 M/mm3 (4.30-5.90); White Blood Cell Count 7.36 K/mm3 (4.00-11.30)
[2019-03-12] MEDS ORDERED: ACET325 PO (11:59)
[2019-03-12] MEDS ORDERED: ONDA4 PO (12:00)
[2019-03-12] MEDS ORDERED: PANT40 PO (12:01)
--- NOTE | 2019-03-12 13:03 | NUR ---
SUPERFICIAL VENOUS THROMBOSIS PT CLEAR FOR DVT HOWEVER HE HAS AN SVT TO THE RUE. DR. BETHEA NOTIFIED, WILL EDUCATE PT PER DR. BETHEA'S REQUEST. WILL CONTINUE MONITOR.
--- NOTE | 2019-03-12 14:54 | NUR ---
DISCHARGE PT AND SPOUSE PROVIDED WITH WRITTEN AND VERBAL DISCHARGE INSTRUCTIONS. THEY REPORTED UNDERSTANDING AFTER QUESTIONS WERE ANSWERED. VSS AT TIME OF DISCHARGE. PT ESCORTED OUT IN W/C BY SHARIFA BAIN AT APPROXIMATELY 1452.
== END 2019-03-12 15:10 | disposition home or self-care (01) | DRG 375 ==
LOC: ER 08:56 → ICUW 13:25 → ICUE 13:25 → SURS 03-11 20:58
PROVIDERS: Emergency Medicine; Family Medicine; Student in an Organized Health Care Education/Training Program; ADMIT Internal Medicine
PROC: 0DB98ZX Excision of Duodenum, Via Natural or Artificial Opening Endoscopic, Diagnostic (ICD-10-PCS; 2019-03-08)
PROC: 3E0G8GC Introduction of Other Therapeutic Substance into Upper GI, Via Natural or Artificial Opening Endoscopic (ICD-10-PCS; principal; 2019-03-08 13:15)
PROC: 0DB68ZX Excision of Stomach, Via Natural or Artificial Opening Endoscopic, Diagnostic (ICD-10-PCS; 2019-03-08 13:15)
PROC: 30233N1 Transfusion of Nonautologous Red Blood Cells into Peripheral Vein, Percutaneous Approach (ICD-10-PCS; 2019-03-09)
DX: C16.4 Malignant neoplasm of pylorus (principal); K92.2 Gastrointestinal hemorrhage, unspecified; K44.9 Diaphragmatic hernia without obstruction or gangrene; K22.2 Esophageal obstruction; D50.0 Iron deficiency anemia secondary to blood loss (chronic); K21.9 Gastro-esophageal reflux disease without esophagitis; Z85.46 Personal history of malignant neoplasm of prostate; I10 Essential (primary) hypertension; I48.91 Unspecified atrial fibrillation; E78.00 Pure hypercholesterolemia, unspecified; J44.9 Chronic obstructive pulmonary disease, unspecified; R73.9 Hyperglycemia, unspecified
CPT/HCPCS: 36247; 36415; 36430; 37244; 71046; 71275; 74174; 75625; 75726; 75774; 80048; 80053; 81003; 82272; 83036; 84550; 85014; 85018; 85025; 85610; 85730; 86850; 86900; 86901; 86923; 88305; 93005; 93010; 93971; 96365; 96366; 99152; 99153; 99285-25; C1760; C1769; C1887; C1894; C9113; J1644; J2250; J2704; J3010; J7030; J7040; J7050; J7120; P9016; Q9967

== ENCOUNTER 2020-07-31 13:02 | Day surgery (SDC) | payer MEDICARE ==
[~2020-07-31] VITALS: Ht 190.5 cm; Wt 108.3 kg
[~2020-07-31 13:02] MED LIST: ACET325 PO; Aspirin EC81 MG PO; CENTRUM SILVER1 EAC2 PO; CENTRUM SILVER1 EAC4 PO; CHOL10002 PO; COQ1050 MG PO; Co Q-10300 MG PO; Colace100 MG PO; Ferrous Glucon324 M1 PO; Glucosamine Ch1 EAC3 PO; LOSA25 PO; LOVA40 PO; METO25ER PO; OMEG1CAP30 PO; ONDA4 PO; PANT40 PO; VITAMIN D325 MC3 PO; Vitamin C100 M1 PO
[2020-07-31] MEDS ORDERED: ASPI81CH PO (14:05)
[2020-07-31] MEDS ORDERED: FLUT.05NI (14:06)
[2020-07-31] MEDS ORDERED: VITAMIN D5000 UNIT PO (14:06)
== END 2020-07-31 15:53 | disposition home or self-care (01) ==
LOC: ORSCSDS 13:02
PROVIDERS: Student in an Organized Health Care Education/Training Program
PROC: 0DB68ZX Excision of Stomach, Via Natural or Artificial Opening Endoscopic, Diagnostic (ICD-10-PCS; principal; 2020-07-31 15:30)
PROC: 0DB88ZX Excision of Small Intestine, Via Natural or Artificial Opening Endoscopic, Diagnostic (ICD-10-PCS; principal; 2020-07-31 15:30)
PROC: 0DB48ZX Excision of Esophagogastric Junction, Via Natural or Artificial Opening Endoscopic, Diagnostic (ICD-10-PCS; principal; 2020-07-31 15:30)
DX: Z85.028 Personal history of other malignant neoplasm of stomach (principal); Z90.3 Acquired absence of stomach [part of]; K44.9 Diaphragmatic hernia without obstruction or gangrene; I10 Essential (primary) hypertension; E78.5 Hyperlipidemia, unspecified; D50.9 Iron deficiency anemia, unspecified; I48.0 Paroxysmal atrial fibrillation; E66.9 Obesity, unspecified; Z68.30 Body mass index [BMI] 30.0-30.9, adult; Z79.899 Other long term (current) drug therapy
CPT/HCPCS: 88305; 88342; J2704; J7120

== ENCOUNTER 2024-12-20 06:12 | Day surgery (SDC) | payer MEDICARE ==
[~2024-12-20] VITALS: Ht 190.5 cm; Wt 103.0 kg
[2024-12-20] VITALS (8 sets, daily range): BP systolic 126–158; BP diastolic 74–84
[~2024-12-20 06:12] MED LIST changes: +ASPI81CH PO; +ELIQUIS5 M2 PO; +EUTHYROX125 MCG; +FLUT.05NI; +LATA.005SO BOTHEYES; +VITAMIN D5000 UNIT PO
[2024-12-20] MEDS ORDERED: Lactated Ringer's 1,000 ML IV SCH (06:25)
[2024-12-20] MEDS ORDERED: CeFAZolin Sodium 2,000 MG in NS 100 ML IV SCH (06:25)
[2024-12-20] MEDS ORDERED: propofoL 20 ML IV ONE (06:50)
[2024-12-20] MEDS ORDERED: Dexamethasone Sod Phos 10 MG/ML 1ML VIAL ONE (06:51)
[2024-12-20] MEDS ORDERED: Ondansetron HCl 2 MG / ML 2ML Vial ONE (06:51)
[2024-12-20] MEDS ORDERED: FentaNYL Citrate 50 MCG/ML 2 ML Injection ONE (06:51)
[2024-12-20] MEDS ORDERED: CeFAZolin Sodium 2,000 MG VIAL ONE (06:55)
[2024-12-20] MEDS ORDERED: Bupivacaine 0.5% HCl 5 MG/ML 30MLVIAL ONE (07:01)
--- NOTE | 2024-12-20 07:16 | NUR ---
History, Chart, Medications and Allergies reviewed before start of procedure.Lungs clear T/O to Auscultation. Pre-Op teaching done. Pt verbalizes understanding. AT BEDSIDE, EYE GLASSES GIVEN TO
[2024-12-20] MEDS ORDERED: CeFAZolin Sodium 1000 mg Vial ONE (07:27)
[2024-12-20] MEDS ORDERED: Ketorolac Tromethamine 30mg Vial ONE (07:48)
[2024-12-20] MEDS ORDERED: Glycopyrrolate 0.2 MG/ML 5ML VIAL ONE (07:51)
[2024-12-20] MEDS ORDERED: HYDROcodone 5-APAP 325 TAB PO PRN (08:40)
--- NOTE | 2024-12-20 09:38 | NUR ---
Patient up to Ambulate independently. Gait steady. Discharge instructions reviewed with patient. Patient verbalizes understanding. Copy given to patient to take home, [facility] FAMILY. Patient States Post-Procedure ride home has been arranged. Discharged via wheelchair to private car for ride home. PT TOLERATING PO, DENIES PAIN. DRESSING C/D/I. XRAY CONFIRMED PER CRYSTAL GROWING TECHNICIAN W[place]am PT REPORTS READY TO GO HOME.
== END 2024-12-20 09:38 | disposition home or self-care (01) ==
LOC: ORSCMMR 06:12 → ORD 07:30 → ORSCMMR 09:38
PROVIDERS: Surgery
PROC: 0JH63WZ Insertion of Totally Implantable Vascular Access Device into Chest Subcutaneous Tissue and Fascia, Percutaneous Approach (ICD-10-PCS; principal; 2024-12-20 07:30)
PROC: 05HM33Z Insertion of Infusion Device into Right Internal Jugular Vein, Percutaneous Approach (ICD-10-PCS; principal; 2024-12-20 07:30)
PROC: B543ZZA Ultrasonography of Right Jugular Veins, Guidance (ICD-10-PCS; principal; 2024-12-20 07:30)
DX: C25.8 Malignant neoplasm of overlapping sites of pancreas (principal); I10 Essential (primary) hypertension; I48.91 Unspecified atrial fibrillation; Z79.01 Long term (current) use of anticoagulants; K21.9 Gastro-esophageal reflux disease without esophagitis; E03.9 Hypothyroidism, unspecified; Z79.899 Other long term (current) drug therapy; Z79.82 Long term (current) use of aspirin
CPT/HCPCS: 77001; C1788; J0690; J1100; J1642; J1885; J2405; J2704; J3010; J7120